=== PATIENT | male | born 1990 | race Caucasian/White ===

== ENCOUNTER 2017-01-16 02:40 | Emergency (ER) | payer BC ==
[2017-01-16 02:44] VITALS: BP 127/83; BMI 25.3
--- NOTE | 2017-01-16 03:20 | DR.GENAD ---
HPI - PCP Primary Care Physician: CASSY DALEY - Complaint/Symptoms Chief Complaint:: PT PLAYED SOFTBALL EARLIER IN THE NIGHT AND WAS HIT IN THE HEAD. PT C/O HEADACHE AT THIS TIME. - Source History Provided: Patient - Mode of Arrival Mode of Arrival: Ambulatory - Timing Onset of Chief Complaint: 01/15/17 PMH - PMH Past Medical History: Yes Past Medical History: Hypertension Past Surgical History: No - Family History History of Family Medical Conditions: Yes Family Medical History: Coronary Artery Disease - Social History Does any household member use tobacco: No Alcohol Use: Occasionally Do you use any recreational Drugs:: No Lives With: Family Lives Where: Home - infectious screening In the last 2 months have you had wt loss of >10#?: NO Have you had fever, night sweats or hemotysis?: No Have you traveled outside the country in the last 6 months?: No Isolation: Standard ROS - Review of Systems Eyes: No Symptoms Reported ENTM: No Symptoms Reported Respiratoy: No Symptoms Reported Cardiovascular: No Symptoms Reported Gastrointestinal/Abdominal: No Symptoms Reported Genitourinary: No Symptoms Reported Neurological: Headache Musculoskeletal: No Symptoms Reported Integumentary: No Symptoms Reported Hematologic/Lymphatic: No Symptoms Reported Endocrine: No Symptoms Reported Psychiatric: No Symptoms Reported All Other Systems: Reviewed and Negative PE - Vital Signs Vitals: Pulse Rate 92 Respiratory Rate 20 Blood Pressure 127/83 O2 Sat by Pulse Oximetry 99 - General Limitations: No Limitations General Appearance: Alert, In No Apparent Distress - Head Head Exam: Normal Inspection, Atraumatic - Eyes Eye exam: Normal Appearance, PERRL, EOMI - ENT ENT Exam: Normal Exam External Ear Exam: Normal External Inspection TM/Canal Exam: Bilateral Normal Nose Exam: Normal Nose Exam Mouth Exam: Normal Inspection Throat Exam: Normal Inspection - Neck Neck Exam: Normal Inspection - Chest Chest Inspection: Normal Inspection - Respiratory Respiratory Exam: Normal Lung Sounds Bilat Respiratory Exam: Bilateral Clear to Auscultation - Cardiovascular Cardiovascular Exam: Regular Rate, Normal Rhythm - Abdominal Exam Abdominal Exam: Normal Inspection Abdominal Tenderness: negative: RUQ, RLQ, LUQ, LLQ, Epigastrium, Suprapubic, Diffuse, Mild, Moderate, Severe, Other - Extremities Extremities Exam: Normal Inspection, Full ROM - Back Back Exam: Normal Inspection - Neurologic Neurological Exam: Alert, Oriented X3, CN II-XII Intact - Psychiatric Psychiatric Exam: Normal Affect - Skin Skin Exam: Warm, Dry ROR - XRAY XRAY Interpreted by: Radiologist (CT Brain: No intracranial process) - Diagnosis Discharge Problem: Head contusion Qualifiers: Encounter type: initial encounter Contusion of head detail: unspecified part of head Qualified Code(s): S00.93XA - Contusion of unspecified part of head, initial encounter Headache Qualifiers: Headache type: post-traumatic Headache chronicity pattern: acute headache Intractability: not intractable Qualified Code(s): G44.319 - Acute post- traumatic headache, not intractable - Discharge Plan Condition: Stable - Follow ups/Referrals Follow ups/Referrals: CASSY DALEY [Primary Care Provider] - 3 days - Instructions
--- NOTE | 2017-01-16 04:03 | CT ---
CT head without contrast Indication: Head injury, hit with softball Comparison: None Technique: CT images of the head were obtained without contrast. Automatic exposure control was util ized. Findings: The ventricles and sulci appear normal for patient age. No acute bleed, generalized or foc al edema, or abnormal extra-axial collection is identified. No acute calvarial fracture is seen. The visualized paranasal sinuses and mastoid air cells are clear. Impression: No acute intracranial abnormality. Reported By:
== END 2017-01-16 04:39 | disposition home or self-care (01) ==
LOC: ER 02:40
DX: S09.8XXA Other specified injuries of head, initial encounter (principal); G44.319 Acute post-traumatic headache, not intractable; X58.XXXA Exposure to other specified factors, initial encounter; Y93.64 Activity, baseball
CPT/HCPCS: 70450; 99282

== ENCOUNTER 2017-09-12 15:33 | Emergency (ER) | payer BC ==
[2017-09-12 15:39] VITALS: BMI 25.7
[2017-09-12] MEDS ORDERED: NS 1000 ML 1,000 ML ONE (16:03)
[2017-09-12] MEDS ORDERED: ZOFRAN INJ 4 MG VIAL ONE (16:03)
[2017-09-12] MEDS ORDERED: NS 1000 ML 1,000 ML IV ONE (16:13)
[2017-09-12] MEDS ORDERED: ZOFRAN INJ 4 MG VIAL IVP ONE (16:13)
[2017-09-12] MEDS ORDERED: TORADOL 30 MG VIAL IVP ONE (16:17)
[2017-09-12] MEDS ORDERED: TORADOL 30 MG VIAL ONE (16:18)
--- NOTE | 2017-09-12 16:34 | DR.URIAD ---
HPI - Time Seen Time seen: 16:30 - PCP Primary Care Physician: CASSY DALEY , - Complaint Chief Complaint Doctors Comments: Patient admits to chills, hurting all over associated with nausea,vomiting and diarrhea Chief Complaint:: PT C/O WAKING UP THIS AM AND HAVING A KNOT IN HIS STOMACH AND THAT HE HAS HAD N/V/D TODAY .. BR Self Treatment fo Chief Complaint: PT TOOK PEPTO.. - Source History Provided: Patient - Mode of Arrival Mode of Arrival: Ambulatory - Timing Onset of Chief Complaint: 09/12/17 PMH - PMH Past Medical History: Yes Past Medical History: Hypertension Past Surgical History: No - Family History History of Family Medical Conditions: No Family Medical History: Coronary Artery Disease - Social History Does patient currently use any type of tobacco product: Yes Have you used tobacco products in the last 12 months: Yes Type of Tobacco Use: Cigarettes How many years tobacco product used: 6 Does any household member use tobacco: No Alcohol Use: None Do you use any recreational Drugs:: No Lives With: Family Lives Where: Home - infectious screening In the last 2 months have you had wt loss of >10#?: NO Have you had fever, night sweats or hemotysis?: No Have you traveled outside the country in the last 6 months?: No Isolation: Standard ROS - Review of Systems Constitutional: Chills Eyes: No Symptoms Reported ENTM: No Symptoms Reported Respiratoy: No Symptoms Reported Cardiovascular: No Symptoms Reported Gastrointestinal/Abdominal: Abdominal Pain Neurological: No Symptoms Reported Musculoskeletal: No Symptoms Reported Integumentary: No Symptoms Reported Hematologic/Lymphatic: No Symptoms Reported Endocrine: No Symptoms Reported Psychiatric: No Symptoms Reported All Other Systems: Reviewed and Negative PE - Vital Signs Vitals: Temperature 97 F Pulse Rate [Apical] 105 Pulse Rate 128 Respiratory Rate 20 Blood Pressure [Left Arm] 106/55 Blood Pressure 165/79 O2 Sat by Pulse Oximetry 96 - General Limitations: No Limitations General Appearance: Alert, In No Apparent Distress - Head Head Exam: Normal Inspection, Atraumatic - Eyes Eye exam: Normal Appearance, PERRL, EOMI - ENT ENT Exam: Normal Exam External Ear Exam: Normal External Inspection TM/Canal Exam: Bilateral Normal Nose Exam: Normal Nose Exam Nasal Speculum Exam: Bilateral Normal Mouth Exam: Normal Inspection, Drooling Throat Exam: Normal Inspection - Neck Neck Exam: Normal Inspection, Full ROM - Chest Chest Inspection: Normal Inspection, Symmetric Chest Wall Rise - Respiratory Respiratory Exam: Normal Lung Sounds Bilat Respiratory Exam: Bilateral Clear to Auscultation - Cardiovascular Cardiovascular Exam: Regular Rate, Normal Rhythm - Abdominal Exam Abdominal Exam: Normal Inspection, Normal Bowel Sounds Abdominal Tenderness: Mild - Extremeties Extremities Exam: Normal Inspection, Full ROM - Back Back Exam: Normal Inspection, Full ROM - Neurologic Neurological Exam: Alert, Oriented X3, CN II-XII Intact - Psychiatric Psychiatric Exam: Normal Affect, Normal Mood - Skin Skin Exam: Warm, Dry, Intact Course - Reevaluation 2nd: Improved - Education/Counseling Educated On: Treatment, Diagnosis, Prognosis, Needs for Follow Up ROR - Labs Reviewed Result Diagrams: 09/12/17 16:30 09/12/17 16:30 Laboratory: WBC 21.0 X10^3/uL (3.6-10.0) H 09/12/17 16:30 RBC 5.93 X10^6/uL (4.7-6.0) 09/12/17 16:30 Hgb 15.8 g/dL (13.5-18.0) 09/12/17 16:30 Hct 47.1 % (42.0-54.0) 09/12/17 16:30 MCV 79.3 fL (80.0-100.0) L 09/12/17 16:30 MCH 26.6 pg (27.0-34.0) L 09/12/17 16:30 MCHC 33.5 g/dL (33.0-35.0) 09/12/17 16:30 RDW 14.3 % (11.6-16.5) 09/12/17 16:30 Plt Count 344 X10^3/uL (150.0-450.0) 09/12/17 16:30 MPV 9.5 fL (7.4-11.0) 09/12/17 16:30 Neut % (Auto) 87.1 % (42.0-75.0) H 09/12/17 16:30 Lymph % (Auto) 5.5 % (21.0-51.0) L 09/12/17 16:30 [place] % (Auto) 6.1 % (0.0-13.0) 09/12/17 16:30 Eos % (Auto) 1.0 % (0.9-2.9) 09/12/17 16:30 Baso % (Auto) 0.3 % (0.2-1.0) 09/12/17 16:30 Neut # (Auto) 18.3 x10^3/uL (2.2-4.8) H 09/12/17 16:30 Lymph # (Auto) 1.2 X10^3/uL (1.3-2.9) L 09/12/17 16:30 [place] # (Auto) 1.3 x10^3/uL (0.3-0.8) H 09/12/17 16:30 Eos # (Auto) 0.2 x10^3/uL (0.0-0.2) 09/12/17 16:30 Baso # (Auto) 0.1 X10^3/uL (0.0-0.1) 09/12/17 16:30 Absolute Nucleated RBC 0.0 /100WBC 09/12/17 16:30 Sodium 141 mmol/L (136-145) 09/12/17 16:30 Corrected Sodium 142 mmol/L (136-145) 09/12/17 16:30 Potassium 5.2 mmol/L (3.5-5.1) H 09/12/17 16:30 Chloride 105 mmol/L (98-107) 09/12/17 16:30 Carbon Dioxide 26.6 mmol/L (21-32) 09/12/17 16:30 BUN 15 mg/dL (7-18) 09/12/17 16:30 Creatinine 1.27 mg/dL (0.70-1.30) 09/12/17 16:30 Est GFR (MDRD) Af Amer > 60 (>60) 09/12/17 16:30 Est GFR (MDRD) Non-Af > 60 (>60) 09/12/17 16:30 Glucose 129 mg/dL (65-99) H 09/12/17 16:30 Calcium 8.9 mg/dL (8.5-10.1) 09/12/17 16:30 Influenza Type A (PCR) Negative (NEGATIVE) 09/12/17 16:37 Influenza Type B (PCR) Negative (NEGATIVE) 09/12/17 16:37 - XRAY XRAY Interpreted by: Radiologist (Chest: no acute process) - Diagnosis Discharge Problem: Acute Viral illness - Discharge Plan Condition: Stable - Follow ups/Referrals Follow ups/Referrals: CASSY DALEY [Primary Care Provider] - 3 days - Instructions
[2017-09-12 17:05] LABS: BASOPHILS # (AUTO) 0.1 X10^3/uL (0.0-0.1); BASOPHILS % (AUTO) 0.3 % (0.2-1.0); EOSINOPHILS # (AUTO) 0.2 x10^3/uL (0.0-0.2); HEMATOCRIT 47.1 % (42.0-54.0); HEMOGLOBIN 15.8 g/dL (13.5-18.0); LYMPHOCYTES # (AUTO) 1.2 X10^3/uL (1.3-2.9); LYMPHOCYTES % (AUTO) 5.5 % (21.0-51.0); MEAN CORPUSCULAR HEMOGLOBIN 26.6 pg (27.0-34.0); MEAN CORPUSCULAR HGB CONC 33.5 g/dL (33.0-35.0); MEAN CORPUSCULAR VOLUME 79.3 fL (80.0-100.0); MEAN PLATELET VOLUME 9.5 fL (7.4-11.0); MONOCYTES # (AUTO) 1.3 x10^3/uL (0.3-0.8); MONOCYTES % (AUTO) 6.1 % (0.0-13.0); NEUTROPHILS # (AUTO) 18.3 x10^3/uL (2.2-4.8); NEUTROPHILS % (AUTO) 87.1 % (42.0-75.0); PLATELET COUNT 344 X10^3/uL (150.0-450.0); RED BLOOD COUNT 5.93 X10^6/uL (4.7-6.0); RED CELL DISTRIBUTION WIDTH 14.3 % (11.6-16.5)
[2017-09-12 17:06] LABS: BLOOD UREA NITROGEN 15 mg/dL (7-18); CALCIUM 8.9 mg/dL (8.5-10.1); CARBON DIOXIDE 26.6 mmol/L (21-32); CHLORIDE 105 mmol/L (98-107); COR NA(FOR HYPERGLY) 142 mmol/L (136-145); CREATININE 1.27 mg/dL (0.70-1.30); SODIUM 141 mmol/L (136-145); eGFR BLACK RACES > 60 (>60); eGFR NON BLACK RACES > 60 (>60)
[2017-09-12] MEDS ORDERED: PROVENTIL NEB TX 0.083% 2.5MG/ 3ML NEB ONE (18:14)
[2017-09-12 18:15] VITALS: BP 106/55
[2017-09-12] MEDS ORDERED: DUONEB 0.5 MG/3 MG ONE (18:17)
--- NOTE | 2017-09-12 18:41 | RAD ---
Examination: Chest, PA and lateral views History: Nausea vomiting and diarrhea Findings: Normal heart size with clear lungs and pleural spaces. Impression: No acute or significant chest findings. Reported By:
== END 2017-09-12 18:55 | disposition home or self-care (01) ==
LOC: ER 15:46
DX: R11.2 Nausea with vomiting, unspecified (principal); B34.9 Viral infection, unspecified
CPT/HCPCS: 36415; 71046; 80048; 85025; 87502; 96365; 96374; 96375; 99283; A4222; J1885; J2405; J7620